=== PATIENT | male | born 1955 | race Caucasian/White ===

== ENCOUNTER 2016-05-23 13:16 | Emergency (ER) | payer BC ==
--- NOTE | 2016-05-23 13:55 | UC ---
Abdominal Pain Male HPI - HPI Summary HPI Summary: constipated for 4 days--did pass some hard stool today just prior to coming in - History of Current Complaint Chief Complaint: UCGI Stated Complaint: STOMACH COMPLAINT Time Seen by Provider: 05/23/16 13:45 Hx Obtained From: Patient Onset/Duration: Gradual Onset, Lasting Days - 3, Still Present Timing: Constant Severity Initially: Mild Severity Currently: Moderate Location: Diffuse Radiates: No Character: Cramping Aggravating Factor(s):: Nothing Alleviating Factor(s): Nothing Associated Signs And Symptoms: Positive: Constipation, Nausea - little bit nauseated but eating ok. Negative: Back Pain, Blood in Stool, Urinary Symptoms, Decreased Appetite, Vomiting, Diarrhea, Penile Discharge - Allergies/Home Medications Allergies/Adverse Reactions: Allergies Allergy/AdvReac Type Severity Reaction Status Date / Time No Known Allergies Allergy Verified 05/23/16 13:27 Home Medications: Home Medications Albuterol HFA INHALER* [Ventolin HFA Inhaler*] 1 - 2 puff INH Q4H PRN 05/23/16 [ History Confirmed 05/23/16] Aspirin [Aspirin Adult Low Dose] 81 mg PO DAILY 05/23/16 [History Confirmed ] Atorvastatin* [Lipitor 10 MG*] 10 mg PO DAILY 05/23/16 [History Confirmed ] Lisinopril [Zestril 5 MG-] 5 mg PO DAILY 05/23/16 [History Confirmed 05/23/16] Metoprolol Tartrate [Lopressor] 50 mg PO DAILY 05/23/16 [History Confirmed 05/23] [id number] Ethyl Esters (NF) [Lovaza (NF)] 1 cap PO BID 05/23/16 [History Confirmed 05/23/16] PMH/Surg Hx/FS Hx/Imm Hx Previously Healthy: No Cardiovascular History Of: Reports: Hypertension Respiratory History Of: Reports: Asthma - Surgical History Surgical History: Yes Surgery Procedure, Year, and Place: tonsilectomy - Family History Known Family History: Positive: Hypertension - Social History Occupation: Employed Full-time Lives: With Family Alcohol Use: None Substance Use Type: None Smoking Status (MU): Never Smoked Tobacco Review of Systems Constitutional: Negative Skin: Negative Eyes: Negative ENT: Negative Respiratory: Negative Cardiovascular: Negative Gastrointestinal: Abdominal Pain - genral crampy, Other - constipation Genitourinary: Negative Motor: Negative Neurovascular: Negative Musculoskeletal: Negative Neurological: Negative Psychological: Negative All Other Systems Reviewed And Are Negative: Yes Physical Exam Triage Information Reviewed: Yes Appearance: Well-Appearing, No Pain Distress, Well-Nourished Vital Signs: Initial Vital Signs Temp 98.9 F 05/23/16 13:30 Pulse 100 05/23/16 13:30 Resp 20 05/23/16 13:30 BP 98/62 05/23/16 13:30 Pulse Ox 97 05/23/16 13:30 Vital Signs Reviewed: Yes Eye Exam: Normal Eyes: Positive: Conjunctiva Clear ENT Exam: Normal ENT: Positive: Normal ENT inspection, Hearing grossly normal. Negative: Nasal congestion, Nasal drainage, Trismus, Muffled/hoarse voice Dental Exam: Normal Neck exam: Normal Neck: Positive: Supple, Nontender, No Lymphadenopathy Respiratory Exam: Normal Respiratory: Positive: Chest non-tender, Lungs clear, Normal breath sounds, No respiratory distress, No accessory muscle use Cardiovascular Exam: Normal Cardiovascular: Positive: RRR, No Murmur, Pulses Normal, Brisk Capillary Refill Abdominal Exam: Other Abdomen Description: Positive: No Organomegaly, Soft, Distended. Negative: CVA Tenderness (R), CVA Tenderness (L), Hepatomegaly, McBurney's Point Tenderness, Peritoneal Signs, Pulsatile Mass Bowel Sounds: Positive: Present Musculoskeletal Exam: Normal Musculoskeletal: Positive: Strength Intact, ROM Intact, No Edema Neurological Exam: Normal Neurological: Positive: Alert, Muscle Tone Normal Psychological Exam: Normal Skin Exam: Normal Diagnostics - Radiology No standard instances Xray Interpretation: Positive (See Comments) - moderated amount of stool noted no obstruction Abd Pain Male Course/Dx - Course Course Of Treatment: increase fluids, high fiber diet, miralax, follow with pcp re-check prn - Differential Dx/Clinical Impression Differential Diagnosis/HQI/PQRI: Bowel Obstruction, Constipation, Ischemic Bowel Provider Diagnoses: Constipation Discharge - Discharge Plan Condition: Stable Disposition: HOME Prescriptions: Polyethylene Glycol 3350* [Miralax*] 17 gm PO DAILY PRN #10 packet PRN Reason: Constipation Patient Education Materials: Constipation (ED), High Fiber Diet (ED), Fleet Enema (ED) Referrals: Amberly Jimenez MD [Primary Care Provider] - If Needed
--- NOTE | 2016-05-23 14:32 | RAD ---
Indication: No bowel movement for 3 days. Comparison: None. Technique: Supine and upright views of the abdomen. Report: Negative for free air. Moderate stool in the RIGHT colon and rectum with moderate rectal distention with formed appearing stool. The descending colon is largely decompressed. No dilated small bowel loops evident. No suspicious calcifications or mass effect. Unremarkable soft tissue contours. IMPRESSION: No evidence for bowel obstruction. Moderate rectal distention with stool.
== END 2016-05-23 14:45 | disposition home or self-care (01) ==
LOC: UCCORT 13:16
DX: K59.00 Constipation, unspecified (principal); I10 Essential (primary) hypertension
CPT/HCPCS: 74020; 99202; G0463